=== PATIENT | male | born 1995 | race Caucasian/White ===

== ENCOUNTER 2017-09-19 06:35 | Day surgery (SDC) | payer OTHER ==
[2017-09-19] MEDS ORDERED: ceFAZolin 2GM PREMIX 2 GM/50 ML BAG IV (07:00)
[2017-09-19] MEDS ORDERED: PROPOFOL 20 ML IV (07:06)
[2017-09-19] MEDS ORDERED: DEXAMETHASONE SOD PHOS 20 MG/5 ML VIAL. (07:06)
[2017-09-19] MEDS ORDERED: ONDANSETRON PF 4 MG/2 ML VIAL. (07:06)
[2017-09-19] MEDS ORDERED: LIDOCAINE 2% PF Vial for OR 5 ML VIAL. (07:06)
[2017-09-19] MEDS ORDERED: FAMOTIDINE 20 MG/2 ML VIAL (07:06)
[2017-09-19] MEDS ORDERED: fentaNYL PF VIAL 100 MCG/2 ML VIAL (07:07)
[2017-09-19] MEDS ORDERED: ROCURONIUM 50 MG/5 ML VIAL. (07:07)
[2017-09-19] MEDS ORDERED: MIDAZOLAM HCL/PF 2 MG/2 ML VIAL. (07:07)
[2017-09-19] MEDS ORDERED: SUCCINYLCHOLINE 200 MG/10 ML VIAL. (07:07)
[2017-09-19] MEDS ORDERED: MIDAZOLAM HCL/PF 2 MG/2 ML VIAL. IV (07:15)
[2017-09-19] MEDS ORDERED: fentaNYL PF VIAL 100 MCG/2 ML VIAL IV (07:15)
[2017-09-19] MEDS ORDERED: LIDOCAINE 1% PF 2 ML VIAL. ID (07:15)
[2017-09-19] MEDS: IV RINGERS,LACTATED 1000ML 1,000 ML IV (07:21)
[2017-09-19] MEDS: BUPIVACAINE-EPI 0.25%-1:200000 50 ML VIAL. (08:17)
[2017-09-19] MEDS ORDERED: SEVOFLURANE 31 TO 60 MINUTES. IH (08:36)
[2017-09-19] MEDS: oxyCODONE/APAP 5/325 1 TAB TABLET PO ×2 (09:00→09:51)
[2017-09-19] MEDS: fentaNYL PF VIAL 100 MCG/2 ML VIAL IV ×2 (09:17→09:32)
[2017-09-19] MEDS: PROCHLORPERAZINE 10 MG/2 ML VIAL. IV (10:13)
[2017-09-19] MEDS ORDERED: PROCHLORPERAZINE 10 MG/2 ML VIAL. (10:14)
== END 2017-09-19 10:26 | disposition home or self-care (01) ==
LOC: SURG 06:35
DX: L05.91 Pilonidal cyst without abscess (principal); K21.9 Gastro-esophageal reflux disease without esophagitis; Z72.89 Other problems related to lifestyle
CPT/HCPCS: 11770; A7015; J0330; J0690; J0780; J1100; J2001; J2250; J2405; J2704; J3010; S0028